=== PATIENT | male | born 1970 | race Caucasian/White ===

== ENCOUNTER 2021-01-01 17:14 | Emergency (ER) | payer OTHER ==
[~2021-01-01] VITALS: Ht 175.3 cm; Wt 112.0 kg
[~2021-01-01 17:14] MED LIST: AMOXICILLIN500 MG PO; FLEXERIL PO; MEDDOSEPAK PO; ULTRAM50 M1 PO; VENTOLIN HF1 IN
[2021-01-01 18:37] LABS: HEMATOCRIT 45.7 % (39.0-50.0); HEMOGLOBIN 15.4 g/dl (14.0-18.0); MEAN CELL VOLUME 91.4 fL CALC (80.0-100.0); MEAN CORPUSCULAR HGB 30.8 pG CALC (26.0-32.0); MEAN CORPUSCULAR HGB CONC 33.7 g/dL CAL (32.0-36.0); NEUT# 5.38 thou/uL (1.82-7.42); RED CELL DISTRI WIDTH 12.6 % (11.5-15.5)
[2021-01-01 18:56] LABS: ALBUMIN 3.8 g/dL (3.2-5.0); ALKALINE PHOSPHATASE 51 u/l (38-126); ANION GAP 14 (6-22 (CALC)); BILIRUBIN, TOTAL 0.3 mg/dL (0.0-1.4); BUN 13 mg/dL (9-20); BUN/CREATININE RATIO 17 (12-20 (CALC)); CARBON DIOXIDE 26 mmol/l (22-30); CHLORIDE 98 mmol/l (95-108); CREATININE 0.8 mg/dL (0.7-1.3); GFR > 60 ML/MIN (>=60 (CALC)); GFR FOR AFR.AMER. > 60 ML/MIN (>=60 (CALC)); POTASSIUM 4.3 mmol/l (3.5-5.1); SGOT/AST 30 u/l (17-59); SODIUM 134 mmol/l (137-146); TOTAL PROTEIN 7.3 g/dL (6.3-8.2)
[2021-01-01 19:08] LABS: MYOGLOBIN 37 ng/mL (0 - 121)
[2021-01-01] MEDS ORDERED: ZPAK PO (20:19)
[2021-01-01 20:31] VITALS: BP 135/90
--- NOTE | 2021-01-02 08:20 | NUR ---
CALLED PT TO SCHEDULE REGENCOV, PT IS NOT INTERESTED IN GETTING THE ANTIBODIES.
== END 2021-01-01 20:38 | disposition home or self-care (01) | DRG 177 ==
LOC: ED 17:14
PROVIDERS: Emergency Medicine
DX: U07.1 COVID-19 (principal); J12.82 Pneumonia due to coronavirus disease 2019
CPT/HCPCS: Q9967

== ENCOUNTER 2022-09-04 08:34 | Day surgery (SDC) | payer BC ==
[~2022-09-04] VITALS: Ht 180.3 cm; Wt 113.4 kg
[~2022-09-04 08:34] MED LIST changes: +B12; +ZPAK PO
[2022-09-04 10:02] VITALS: BP 123/77
== END 2022-09-04 10:25 | disposition home or self-care (01) | DRG 392 ==
LOC: ENDO 08:34 → ORM 08:40 → ENDO 08:40 → ORM 09:30 → ENDO 10:00
PROVIDERS: ATTEND Surgery
PROC: 0DBP8ZX Excision of Rectum, Via Natural or Artificial Opening Endoscopic, Diagnostic (ICD-10-PCS; principal; 2022-09-04)
DX: R10.31 Right lower quadrant pain (principal); D12.8 Benign neoplasm of rectum; K40.20 Bilateral inguinal hernia, without obstruction or gangrene, not specified as recurrent

== ENCOUNTER 2022-09-07 16:10 | Emergency (ER) | payer BC ==
[~2022-09-07] VITALS: Ht 180.3 cm; Wt 113.3 kg
[2022-09-07 17:28] LABS: BASO% 0.4 % (0-3); HEMOGLOBIN 13.7 g/dl (14.0-18.0); IMMATURE GRANULOCYTES 0.2 % (0.0-5.0); LYMPH% 21.3 % (15-41); MEAN CELL VOLUME 89.6 fL CALC (80.0-100.0); MEAN CORPUSCULAR HGB 29.2 pG CALC (26.0-32.0); MEAN CORPUSCULAR HGB CONC 32.6 g/dL CAL (32.0-36.0); NEUT# 8.52 thou/uL (1.82-7.42); NEUT% 69.1 % (42-76); RED BLOOD COUNT 4.69 mill/uL (4.70-6.10); RED CELL DISTRI WIDTH 12.9 % (11.5-15.5)
[2022-09-07 17:37] LABS: ALKALINE PHOSPHATASE 58 u/l (38-126); ANION GAP 14 (6-22 (CALC)); BILIRUBIN, TOTAL 0.3 mg/dL (0.2-1.3); BUN 17 mg/dL (9-20); BUN/CREATININE RATIO 18 (12-20 (CALC)); CARBON DIOXIDE 24 mmol/l (22-30); CHLORIDE 107 mmol/l (95-108); CREATININE 0.9 mg/dL (0.7-1.3); GFR FOR AFR.AMER. > 60 ML/MIN (>=60 (CALC)); GFR OTHER RACES > 60 ML/MIN (>=60 (CALC)); POTASSIUM 4.7 mmol/l (3.5-5.1); SGOT/AST 24 u/l (17-59); SODIUM 140 mmol/l (137-146); TOTAL PROTEIN 7.8 g/dL (6.3-8.2)
[2022-09-07 17:38] LABS: ALBUMIN 4.6 g/dL (3.2-5.0)
[2022-09-07] MEDS ORDERED: TRAMADOL HYDROC50 M1 PO (20:06)
[2022-09-07] MEDS ORDERED: BACTRIM DS1 TAB PO (20:06)
[2022-09-07 20:11] VITALS: BP 141/91
== END 2022-09-07 20:22 | disposition home or self-care (01) | DRG 603 ==
LOC: ED 16:10
PROVIDERS: Family Medicine
DX: L03.312 Cellulitis of back [any part except buttock and flank] (principal)

== ENCOUNTER 2023-11-18 08:23 | Emergency (ER) | payer BC ==
[~2023-11-18] VITALS: Ht 180.3 cm; Wt 120.0 kg
[2023-11-18] VITALS (11 sets, daily range): BP systolic 101–158; BP diastolic 84–103
[~2023-11-18 08:23] MED LIST changes: +BACTRIM DS1 TAB PO; +TRAMADOL HYDROC50 M1 PO
[2023-11-18] MEDS ORDERED: PREDNISONE50 MG PO (11:42)
[2023-11-18] MEDS ORDERED: COLCHICINE0.6 M2 PO (11:42)
[2023-11-18] MEDS ORDERED: CEPHALEXIN500 M1 PO (11:42)
== END 2023-11-18 12:00 | disposition home or self-care (01) | DRG 556 ==
LOC: ED 08:23
DX: M79.671 Pain in right foot (principal)